=== PATIENT | female | born 1995 | race Caucasian/White ===

== ENCOUNTER 2017-02-10 02:35 | Emergency (ER) | payer MEDICAID ==
--- NOTE | 2017-02-10 02:40 | ED Physician Documentation ---
PD HPI HEENT - Stated complaint Stated Complaint: R EAR PX - History obtained from History obtained from: Patient - History of Present Illness Timing - onset: Enter time (00:00 (midnight)), Today Timing - duration: Hours Timing - details: Abrupt onset, Constant Pain level now: 8 Location: Right ear Improves: Nothing Worsens: Swalllowing Associated symptoms: No: Fever, Congestion, Rhinorrhea, Facial swelling, Headache, Cough Review of Systems Constitutional: denies: Fever, Chills, Sweats Ears: reports: Ear pain. denies: Loss of hearing, Drainage/discharge, Tinnitus/ ringing Nose: reports: Reviewed and negative Throat: denies: Sore throat PD PAST MEDICAL HISTORY - Past Medical History Past Medical History: No - Past Surgical History Past Surgical History: No - Present Medications Home Medications: Ambulatory Orders Medication Instructions Recorded Confirmed HYDROcod/ACETAM 5/325 [[place] 5/325] 1 - 2 ea PO Q6H PRN #15 tablet 02/10/17 - Allergies Allergies/Adverse Reactions: Allergies Allergy/AdvReac Type Severity Reaction Status Date / Time No Known Drug Allergies Allergy Verified 09/08/15 16:34 - Social History Does the pt smoke?: Yes Smoking Status: Current some day smoker Does the pt drink ETOH?: Yes Does the pt have substance abuse?: No - Immunizations Immunizations are current?: Yes PD ED PE NORMAL - Vitals Vital signs reviewed: Yes - General General: Alert and oriented X 3, Well developed/nourished, Other (appears to be uncomfortable due to pain) - HEENT HEENT: Moist mucous membranes, Pharynx benign - Neck Neck: Supple, no meningeal sign PD ED PE EXPANDED - HEENT HEENT: R TM dull, R TM bulging, R TM loss of landmarks Results - Vitals Vitals: Vital Signs - 24 hr 02/10/17 02:39 Temperature 36.6 C Heart Rate 87 Respiratory 18 Rate Blood Pressure 131/80 H O2 Saturation 97 Oxygen O2 Source Room air PD MEDICAL DECISION MAKING - ED course Complexity details: considered differential, d/w patient Departure - Departure Disposition: 01 Home, Self Care Clinical Impression: Serous otitis media Qualifiers: Chronicity: acute Laterality: right Recurrence: not specified as recurrent Qualified Code(s): H65.01 - Acute serous otitis media, right ear Condition: Good Instructions: ED Otitis Media Serous Adult Follow-Up: Judy Stevens ARNP [Primary Care Provider] - Prescriptions: HYDROcod/ACETAM 5/325 [[place] 5/325] 1 - 2 ea PO Q6H PRN #15 tablet PRN Reason: Pain Discharge Date/Time: 02/10/17 03:08
[2017-02-10 02:43] VITALS: BP 131/80
[2017-02-10] MEDS ORDERED: HYDROcod/ACET 5/325 Prepack 6 PO STA (02:55)
[2017-02-10] MEDS ORDERED: DEXAMETHASONE 10 MG/ML VIAL PO STA (02:55)
[2017-02-10] MEDS ORDERED: DEXAMETHASONE 10 MG/ML VIAL ONE (03:03)
[2017-02-10] MEDS ORDERED: HYDROcod/ACET 5/325 Prepack 6 PO ONE (03:03)
[2017-02-10] MEDS ORDERED: CHERRY SYRUP 10 ML UDC PO ONE (03:04)
== END 2017-02-10 03:08 | disposition home or self-care (01) ==
LOC: ED 02:35
DX: H65.01 Acute serous otitis media, right ear (principal); F17.200 Nicotine dependence, unspecified, uncomplicated
CPT/HCPCS: 99283; A9270

== ENCOUNTER 2017-09-08 17:27 | Emergency (ER) | payer MEDICAID ==
[2017-09-08] MEDS ORDERED: HYDROcod/ACETAM 5/325 MG TABLET PO STA (18:42)
[2017-09-08] MEDS ORDERED: HYDROcod/ACET 5/325 Prepack 4 PO STA (18:52)
--- NOTE | 2017-09-08 18:55 | ED Physician Documentation ---
PD HPI BACK INJURY - Stated complaint Stated Complaint: BACK PX - History obtained from History obtained from: Patient - History of Present Illness Type of injury: Other (She tripped while chasing her dog and kind of came down on her back, she complains of left flank pain radiating a little bit towards the hip. No other injuries. She is able to walk and bear weight. There is no possibility of .) Review of Systems Constitutional: reports: Reviewed and negative Cardiac: reports: Reviewed and negative Respiratory: reports: Reviewed and negative PD PAST MEDICAL HISTORY - Past Medical History Past Medical History: No Cardiovascular: None Respiratory: None Neuro: None Endocrine/Autoimmune: None GI: None FITTER PLACER: None : None HEENT: None, Other Psych: None Musculoskeletal: None Derm: None - Past Surgical History Past Surgical History: No - Present Medications Home Medications: Ambulatory Orders Medication Instructions Recorded Confirmed HYDROcod/ACETAM 5/325 [[place] 5/325] 1 - 2 ea PO Q6H PRN #15 tablet 09/08/17 - Allergies Allergies/Adverse Reactions: Allergies Allergy/AdvReac Type Severity Reaction Status Date / Time No Known Drug Allergies Allergy Verified 09/08/17 17:42 - Social History Does the pt smoke?: Yes Smoking Status: Current every day smoker Does the pt drink ETOH?: Yes Does the pt have substance abuse?: No Substance Use and Type: Marijuana - Immunizations Immunizations are current?: Yes PD ED PE NORMAL - Vitals Vital signs reviewed: Yes - General General: Alert and oriented X 3, No acute distress - Abdomen Abdomen: Soft, Non tender - Back Back: No spinal TTP, Other (She has muscular tenderness over the left back without midline tenderness or hip or pelvic tenderness.) - Extremities Extremities: Other (The patient has equal and normal Achilles and patellar reflexes bilaterally. Normal sensation in all areas of the legs. Patient denies saddle anesthesia. Normal strength in flexion-extension at the ankles, knees, and flexion of the hips.) - Neuro Neuro: Alert and oriented X 3, Normal speech Results - Vitals Vitals: Vital Signs - 24 hr 09/08/17 09/08/17 17:39 18:54 Temperature 36.9 C 36.9 C Heart Rate 94 75 Respiratory 15 18 Rate Blood Pressure 123/74 125/76 O2 Saturation 97 95 Oxygen O2 Source Room air PD MEDICAL DECISION MAKING - ED course ED course: Xrays were recommended but refused, Departure - Departure Disposition: 01 Home, Self Care Clinical Impression: Low back sprain Qualifiers: Encounter type: initial encounter Qualified Code(s): S33.9XXA - Sprain of unspecified parts of lumbar spine and pelvis, initial encounter Condition: Stable Record reviewed to determine appropriate education?: Yes Instructions: ED Sprain Strain Lumbar Prescriptions: HYDROcod/ACETAM 5/325 [[place] 5/325] 1 - 2 ea PO Q6H PRN #15 tablet PRN Reason: Pain Comments: Call your doctor to arrange a follow-up appointment, make the next available appointment. In the interim, return anytime if worse or if new symptoms develop. Do not drink or drive while taking narcotic pain medication. Note that many narcotic pain relievers also contain Tylenol/acetaminophen. Please ensure that your total dose of acetaminophen from all sources does not exceed 3 g (3000 mg) per day. You may get constipated while on this medication. Take a stool softener such as Colace twice a day while you are on it. Also add an [id number]-cko-[id number] laxative such as senna or MiraLAX on any day that you do not have a bowel movement. If you received a narcotic pain medication or sedative while in the emergency department, do not drive for the next 24 hours. Discharge Date/Time: 09/08/17 19:01
[2017-09-08 18:56] VITALS: BP 125/76
== END 2017-09-08 19:01 | disposition home or self-care (01) ==
LOC: ED 17:27
DX: F17.200 Nicotine dependence, unspecified, uncomplicated (principal); S33.5XXA Sprain of ligaments of lumbar spine, initial encounter; W01.0XXA Fall on same level from slipping, tripping and stumbling without subsequent striking against object, initial encounter
CPT/HCPCS: 99283; A9270

== ENCOUNTER 2017-11-14 09:36 | Emergency (ER) | payer MEDICAID ==
[2017-11-14 10:54] LABS: BILIRUBIN,URINE NEGATIVE (NEGATIVE); GLUCOSE, URINE (UA) NEGATIVE (NEGATIVE); KETONES,URINE (UA) NEGATIVE (NEGATIVE); LEUKOCYTE ESTERASE, URINE NEGATIVE (NEGATIVE); NITRITE,URINE NEGATIVE (NEGATIVE); OCCULT BLOOD,URINE NEGATIVE (NEGATIVE); PH,URINE 6.5 PH (5.0-7.5); PROTEIN,URINE NEGATIVE (NEGATIVE); UROBILINOGEN,URINE 0.2 (NORMAL) E.U./dL (NORMAL)
[2017-11-14 10:56] LABS: CLARITY,URINE CLEAR (CLEAR); HCG UR QUAL NEGATIVE
[2017-11-14] MEDS ORDERED: cefTRIAXone 250 MG VIAL IM STA (11:52)
[2017-11-14] MEDS ORDERED: LIDOCAINE 1% 2 ML VIAL SUBQ ONE (11:52)
[2017-11-14] MEDS ORDERED: AZITHROMYCIN 250 MG TABLET PO STA (11:52)
--- NOTE | 2017-11-14 11:57 | ED Physician Documentation ---
PD HPI FEMALE - Stated complaint Stated Complaint: FM - Chief complaint Chief Complaint: Wound - History obtained from History obtained from: Patient - History of Present Illness Timing - onset: How many days ago (3) Timing - duration: Days (3) Timing - details: Gradual onset, Still present Associated symptoms: Genital sore/lesion Contributing factors: Sexually active, Exposed to STD Similar symptoms before: Has not had sx before Recently seen: Not recently seen - Additional information Additional information: 22-year-old female has noted some small red bumps on her buttocks that have drained some pus and are firm. She got a telephone call from her boyfriend who states that he got a call from a female he had been with recently stating that he needs to be checked for chlamydia. The patient denies any urinary symptoms or vaginal discharge denies any pelvic cramping. Review of Systems Constitutional: denies: Fever Eyes: denies: Decreased vision Ears: denies: Ear pain Nose: denies: Congestion Respiratory: denies: Cough GI: denies: Vomiting : denies: Dysuria, Discharge Skin: reports: Lesions Musculoskeletal: denies: Neck pain, Back pain, Extremity pain PD PAST MEDICAL HISTORY - Past Medical History Cardiovascular: None Respiratory: None Endocrine/Autoimmune: None GI: None ANIMAL WARDEN: None : None HEENT: None, Other Psych: None Musculoskeletal: None Derm: None - Past Surgical History Past Surgical History: No - Present Medications Home Medications: Ambulatory Orders Medication Instructions Recorded Confirmed HYDROcod/ACETAM 5/325 [[place] 5/325] 1 - 2 ea PO Q6H PRN #15 tablet 09/08/17 Sulfamethoxazole/Trimethoprim 1 each PO BID #14 tablet 11/14/17 [Sulfamethoxazole-Tmp Ds Tablet] - Allergies Allergies/Adverse Reactions: Allergies Allergy/AdvReac Type Severity Reaction Status Date / Time No Known Drug Allergies Allergy Verified 09/08/17 17:42 - Social History Does the pt smoke?: Yes Smoking Status: Current every day smoker Does the pt drink ETOH?: Yes Does the pt have substance abuse?: No - Immunizations Immunizations are current?: Yes - POLST Patient has POLST: No PD ED PE NORMAL - Vitals Vital signs reviewed: Yes (normal ) - General General: Alert and oriented X 3, No acute distress, Well developed/nourished - HEENT HEENT: Atraumatic, PERRL, EOMI - Respiratory Respiratory: No respiratory distress - Female Female : Molder Helper present (Samantha), Other (There are 3 small red lumps on the lower buttocks posterior thigh consistent with staph skin infection and not HSV. There is scant discharge and the cervix is high a specimen is taken from the area and may be inadequate. There is no cervial motion tenderness. ) - Derm Derm: Normal color, Warm and dry - Extremities Extremities: No deformity, No edema - Neuro Neuro: No motor deficit, No sensory deficit Eye Opening: Spontaneous Motor: Obeys Commands Verbal: Oriented GCS Score: 15 - Psych Psych: Normal mood, Normal affect Results - Vitals Vitals: Vital Signs - 24 hr 11/14/17 09:39 Temperature 36.2 C L Heart Rate 74 Respiratory 18 Rate Blood Pressure 135/70 H O2 Saturation 98 Oxygen O2 Source Room air - Labs Labs: Laboratory Tests 11/14/17 10:49 Urine Color YELLOW Urine Clarity CLEAR Urine pH 6.5 Ur Specific [place] 1.015 Urine Protein NEGATIVE Urine Glucose (UA) NEGATIVE Urine Ketones NEGATIVE Urine Occult Blood NEGATIVE Urine Nitrite NEGATIVE Urine Bilirubin NEGATIVE Urine Urobilinogen 0.2 (NORMAL) Ur Leukocyte Esterase NEGATIVE Ur Microscopic Review NOT INDICATED Urine Culture Comments NOT INDICATED Urine HCG, Qual NEGATIVE PD MEDICAL DECISION MAKING - ED course Complexity details: reviewed results, re-evaluated patient, considered differential, d/w patient ED course: 22-year-old female with what appears to be a scattered staph skin infection on her lower buttocks and posterior thigh has been exposed to chlamydia as well. Pelvic exam is unremarkable and there is no cervical motion tenderness. Despite this patient is treated for chlamydia with 250 mg of Rocephin and 1 g of azithromycin. She does have the staph infection this will be treated separately with sulfamethoxazole trimethoprim. - Sepsis Event Vital Signs: Vital Signs - 24 hr 11/14/17 09:39 Temperature 36.2 C L Heart Rate 74 Respiratory 18 Rate Blood Pressure 135/70 H O2 Saturation 98 Oxygen O2 Source Room air Departure - Departure Disposition: 01 Home, Self Care Clinical Impression: STD exposure, Staph skin infection Condition: Stable Instructions: ED Staph Infec Abx Tx Only, ED VD Cervicitis Treated Follow-Up: [facility] [Provider Group] Prescriptions: Sulfamethoxazole/Trimethoprim [Sulfamethoxazole-Tmp Ds Tablet] 1 each PO BID # 14 tablet
[2017-11-14 12:10] VITALS: BP 130/68
== END 2017-11-14 12:09 | disposition home or self-care (01) ==
LOC: ED 09:36
DX: L08.9 Local infection of the skin and subcutaneous tissue, unspecified (principal); B95.8 Unspecified staphylococcus as the cause of diseases classified elsewhere; Z20.2 Contact with and (suspected) exposure to infections with a predominantly sexual mode of transmission; F17.200 Nicotine dependence, unspecified, uncomplicated
CPT/HCPCS: 81003; 81025; 87491; 87591; 96372; 99283; A9270; 81001; 87086

== ENCOUNTER 2018-10-19 15:04 | Emergency (ER) | payer SELFPAY ==
--- NOTE | 2018-10-19 15:32 | ED Physician Documentation ---
PD HPI FEMALE - Stated complaint Stated Complaint: FEMALE - Chief complaint Chief Complaint: UTI - History obtained from History obtained from: Patient - History of Present Illness Timing - onset: How many days ago (33) Timing - duration: Days Timing - details: Gradual onset, Still present Associated symptoms: Back pain, Dysuria, Urinary frequency Contributing factors: No: Similar symptoms before: Diagnosis (UTI and pyelo) Recently seen: Not recently seen - Additional information Additional information: 23-year-old female previously well with a prior history of urinary tract infection and pyelonephritis has developed urinary urgency frequency and dysuria with some mild nausea and some left flank pain. Review of Systems Constitutional: reports: Myalgias, Fatigue. denies: Fever, Chills Eyes: denies: Decreased vision Ears: denies: Loss of hearing, Ear pain Nose: denies: Congestion Throat: denies: Sore throat Respiratory: denies: Dyspnea, Cough GI: reports: Nausea. denies: Abdominal Pain, Vomiting : reports: Dysuria, Frequency Skin: denies: Rash Musculoskeletal: reports: Back pain. 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 : Chronic bladder infection HEENT: None, Other Psych: None Musculoskeletal: None Derm: None - Past Surgical History Past Surgical History: No - Present Medications Home Medications: Ambulatory Orders Medication Instructions Recorded Confirmed Sulfamethoxazole/Trimethoprim 1 each PO BID #14 tablet 10/19/18 [Sulfamethoxazole-Tmp Ds Tablet] - Allergies Allergies/Adverse Reactions: Allergies Allergy/AdvReac Type Severity Reaction Status Date / Time No Known Drug Allergies Allergy Verified 09/08/17 17:42 - Social History Does the pt smoke?: Yes Smoking Status: Current every day smoker Does the pt drink ETOH?: Yes Does the pt have substance abuse?: No - Immunizations Immunizations are current?: Yes - POLST Patient has POLST: No PD ED PE NORMAL - Vitals Vital signs reviewed: Yes (normal ) - General General: Alert and oriented X 3, No acute distress, Well developed/nourished - HEENT HEENT: Atraumatic, PERRL, EOMI - Respiratory Respiratory: No respiratory distress - Back Back: No spinal TTP, Other (there is mild point tenderness to the lower lumbar paraspinous muscles and there is tenderness to the left CVA that is mild ) - Derm Derm: Normal color, Warm and dry, No rash - Extremities Extremities: No deformity, No edema - Neuro Neuro: Alert and oriented X 3, in school suspension coordinator 2-12 intact, No motor deficit, No sensory deficit, Normal speech Eye Opening: Spontaneous Motor: Obeys Commands Verbal: Oriented GCS Score: 15 - Psych Psych: Normal mood, Normal affect Results - Vitals Vitals: Vital Signs - 24 hr 10/19/18 15:10 Temperature 36.6 C Heart Rate 100 Respiratory 18 Rate Blood Pressure 121/73 O2 Saturation 98 Oxygen O2 Source Room air - Labs Labs: Laboratory Tests 10/19/18 10/19/18 15:23 15:23 Urine Color YELLOW Urine Clarity HAZY Urine pH 7.0 Ur Specific [place] 1.020 1.020 Urine Protein TRACE Urine Glucose (UA) NEGATIVE Urine Ketones NEGATIVE Urine Occult Blood TRACE-LYSE Urine Nitrite POSITIVE H Urine Bilirubin NEGATIVE Urine Urobilinogen 0.2 (NORMAL) Ur Leukocyte Esterase MODERATE H Urine RBC 6-10 H Urine WBC >25 H Ur Squamous Epith Cells FEW Squamous Urine Bacteria Many H Ur Microscopic Review INDICATED Urine Culture Comments INDICATED Urine HCG, Qual NEGATIVE PD MEDICAL DECISION MAKING - ED course Complexity details: reviewed old records, reviewed results, re-evaluated patient, considered differential, d/w patient ED course: 23-year-old female with a prior history of urinary tract infection and pyelonephritis has developed urinary tract infection again today and has some left flank tenderness. She is administered Rocephin 1 g IM. Departure - Departure Disposition: 01 Home, Self Care Clinical Impression: Pyelonephritis Instructions: ED Kidney Infec Female Follow-Up: [facility] [Provider Group] Prescriptions: Sulfamethoxazole/Trimethoprim [Sulfamethoxazole-Tmp Ds Tablet] 1 each PO BID #14 tablet
[2018-10-19 15:34] LABS: BILIRUBIN,URINE NEGATIVE (NEGATIVE); GLUCOSE, URINE (UA) NEGATIVE (NEGATIVE); KETONES,URINE (UA) NEGATIVE (NEGATIVE); LEUKOCYTE ESTERASE, URINE MODERATE (NEGATIVE); NITRITE,URINE POSITIVE (NEGATIVE); OCCULT BLOOD,URINE TRACE-LYSE (NEGATIVE); PROTEIN,URINE TRACE mg/dL (NEGATIVE); UROBILINOGEN,URINE 0.2 (NORMAL) E.U./dL (NORMAL)
[2018-10-19 15:37] LABS: CLARITY,URINE HAZY (CLEAR)
[2018-10-19 15:38] LABS: HCG UR QUAL NEGATIVE
[2018-10-19 15:44] LABS: BACTERIA,URINE Many /HPF (None Seen); SQUAMOUS EPITHELIAL CELL,UR FEW Squamous (<= Few)
[2018-10-19] MEDS ORDERED: cefTRIAXone 1 GM VIAL IM STA (15:58)
[2018-10-19] MEDS ORDERED: LIDOCAINE 1% 2 ML VIAL MC ONE (15:58)
[2018-10-19 16:35] VITALS: BP 116/63
== END 2018-10-19 16:34 | disposition home or self-care (01) ==
LOC: ED 15:04
DX: N12 Tubulo-interstitial nephritis, not specified as acute or chronic (principal); F17.200 Nicotine dependence, unspecified, uncomplicated
CPT/HCPCS: 81001; 81003; 81025; 87086; 87181; 96372; 99283

== ENCOUNTER 2019-02-27 09:19 | Emergency (ER) | payer MEDICAID ==
[2019-02-27 10:55] VITALS: BP 128/80
--- NOTE | 2019-02-27 11:18 | ED Physician Documentation ---
PD HPI FEMALE - Stated complaint Stated Complaint: FEMALE - Chief complaint Chief Complaint: Abd Pain - History obtained from History obtained from: Patient - History of Present Illness Timing - onset: How many weeks ago (3) Timing - duration: Weeks (3) Timing - details: Gradual onset, Still present, Waxing and waning Associated symptoms: Pelvic pain Contributing factors: IUD Similar symptoms before: Has not had sx before Recently seen: Clinic - Additional information Additional information: 23-year-old female complains that over the past 3 weeks she has had pain immediately after intercourse lasting about 30 minutes. She is been into see her regular doctor and she is now been treated for bacterial vaginosis. Today she went to wipe and found a small piece of her IUD. She is come in now for hoda luation. She states that she was seen yesterday and has a order for an ultrasound as they were not able to find the strings. 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 : Chronic bladder infection HEENT: None, Other Psych: None Musculoskeletal: None Derm: None - Past Surgical History Past Surgical History: No - Present Medications Home Medications: Ambulatory Orders Medication Instructions Recorded Confirmed Sulfamethoxazole/Trimethoprim 1 each PO BID #14 tablet 10/19/18 [Sulfamethoxazole-Tmp Ds Tablet] - Allergies Allergies/Adverse Reactions: Allergies Allergy/AdvReac Type Severity Reaction Status Date / Time No Known Drug Allergies Allergy Verified 02/27/19 09:22 - Social History Does the pt smoke?: Yes Smoking Status: Current every day smoker Does the pt drink ETOH?: Yes Does the pt have substance abuse?: No - Immunizations Immunizations are current?: Yes - POLST Patient has POLST: No PD ED PE NORMAL - Vitals Vital signs reviewed: Yes (hypertensive ) - General General: Alert and oriented X 3, No acute distress, Well developed/nourished - HEENT HEENT: Atraumatic, PERRL, EOMI - Respiratory Respiratory: No respiratory distress - Female Female : [employer] present (eula ), Other (The patient is on her menses. The cervix is anterior and the strings of the IUD are present. The IUD Is removed successfully. ) - Derm Derm: Normal color, Warm and dry, No rash - Extremities Extremities: No deformity, No edema - Neuro Neuro: Alert and oriented X 3, track manager 2-12 intact, No motor deficit, No sensory deficit, Normal speech Eye Opening: Spontaneous Motor: Obeys Commands Verbal: Oriented GCS Score: 15 - Psych Psych: Normal mood, Normal affect Results - Vitals Vitals: Vital Signs - 24 hr 02/27/19 02/27/19 09:22 10:54 Temperature 36.5 C 36.4 C L Heart Rate 88 68 Respiratory 16 15 Rate Blood Pressure 131/85 H 128/80 O2 Saturation 100 99 Oxygen O2 Source Room air PD MEDICAL DECISION MAKING - ED course Complexity details: re-evaluated patient, considered differential, d/w patient ED course: 23-year-old female who has been having dyspareunia for 3 weeks found a broken part to her IUD and today we were able to remove the IUD the remainder of the IUD is intact and the patient has a resolution of her symptoms within 20 minutes. Departure - Departure Disposition: 01 Home, Self Care Clinical Impression: Encounter for IUD removal IUD mechanical complication Qualifiers: Mechanical complication type: mechanical breakdown Encounter type: initial encounter Qualified Code(s): T83.31XA - Breakdown (mechanical) of intrauterine contraceptive device, initial encounter Condition: Stable Instructions: Levonorgestrel intrauterine device IUD Follow-Up: Judy Stevens ARNP [Primary Care Provider] - Discharge Date/Time: 02/27/19 11:34
== END 2019-02-27 11:34 | disposition home or self-care (01) ==
LOC: ED 09:19
DX: T83.32XA Displacement of intrauterine contraceptive device, initial encounter (principal); Y84.8 Other medical procedures as the cause of abnormal reaction of the patient, or of later complication, without mention of misadventure at the time of the procedure; N94.10 Unspecified dyspareunia; F17.200 Nicotine dependence, unspecified, uncomplicated
CPT/HCPCS: 99282

== ENCOUNTER 2019-05-11 17:34 | Emergency (ER) | payer MEDICAID ==
[2019-05-11 17:50] VITALS: BP 129/69
[2019-05-11] MEDS ORDERED: HYDROcod/ACETAM 5/325 MG TABLET PO STA (18:35)
--- NOTE | 2019-05-11 18:37 | ED Physician Documentation ---
History of Present Illness - Stated complaint Stated Complaint: TOOTH PX - Chief complaint Chief Complaint: Heent - History obtained from History obtained from: Patient - History of Present Illness Timing: Yesterday Pain level max: 8 Pain level now: 8 - Additonal information Additional information: Left front upper tooth pain. She states that this tooth has had a root canal in the past. She states that she has been told it is dying. She states it was not hurting until yesterday. Increasing pain today. She states she is currently on Flagyl for bacterial vaginitis and was given a antibiotic for "staph". She does not know what it is and does not have it with her. She picked it up from the pharmacy today but has not started it. Nothing makes this better or worse. No fevers. 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 : Chronic bladder infection HEENT: None, Other Psych: None Musculoskeletal: None Derm: None - Past Surgical History Past Surgical History: No - Present Medications Home Medications: Ambulatory Orders Medication Instructions Recorded Confirmed Sulfamethoxazole/Trimethoprim 1 each PO BID #14 tablet 10/19/18 [Sulfamethoxazole-Tmp Ds Tablet] Hydrocodone/Acetaminophen 1 - 2 each PO Q6H PRN #14 tablet 05/11/19 [Hydrocodon-Acetaminophen 5-325] - Allergies Allergies/Adverse Reactions: Allergies Allergy/AdvReac Type Severity Reaction Status Date / Time No Known Drug Allergies Allergy Verified 05/11/19 17:50 - Social History Does the pt smoke?: Yes Smoking Status: Current every day smoker Does the pt drink ETOH?: Yes Does the pt have substance abuse?: No - Immunizations Immunizations are current?: Yes - POLST Patient has POLST: No PD ED PE NORMAL - Vitals Vital signs reviewed: Yes - General General: Alert and oriented X 3 - HEENT HEENT: Moist mucous membranes - Neck Neck: Supple, no meningeal sign - Derm Derm: Warm and dry - Neuro Neuro: Alert and oriented X 3 PD ED PE EXPANDED - HEENT HEENT Visual: 1 - swelling, tenderness Results - Vitals Vitals: Vital Signs - 24 hr 05/11/19 17:48 Temperature 36.7 C Heart Rate 77 Respiratory 18 Rate Blood Pressure 129/69 O2 Saturation 97 Oxygen O2 Source Room air PD MEDICAL DECISION MAKING - ED course Complexity details: considered differential, d/w patient ED course: Patient presents to the emergency room with a dental infection. Will prescribe pain medication for home. She picked up antibiotics today. Sounds as if it may be Keflex. If it is Keflex, she can continue this at home. If it is not, she will call back to the emergency department to have her antibiotic changed. Patient counseled regarding signs and symptoms for which I believe and urgent re-evaluation would be necessary. Patient with good understanding of and agreement to plan and is comfortable going home at this time This document was made in part using voice recognition software. While efforts are made to proofread this document, sound alike and grammatical errors may occur. Departure - Departure Disposition: 01 Home, Self Care Clinical Impression: Dental infection Condition: Good Instructions: ED Tooth Pain Follow-Up: Judy Stevens ARNP [Primary Care Provider] - Prescriptions: Hydrocodone/Acetaminophen [Hydrocodon-Acetaminophen 5-325] 1 - 2 each PO Q6H PRN #14 tablet PRN Reason: pain Comments: Return if you worsen. Please follow-up with your dentist as soon as possible. Call back to the emergency department with the antibiotic that you picked up today. Do not drink alcohol or drive while on narcotic pain medicine. Note that many narcotic pain relievers also contain tylenol/acetaminophen. Please ensure that your total dose of acetaminophen from all sources does not exceed 3 grams (3000mg) per day. You may constipated on this medication, take a stool softener such as "Colace" twice a day while you are on it. Also recommend a [id number] laxative such as senna or MiraLAX any day that you do not have a bowel movement. If you received narcotic pain medication in the emergency department, do not drive or operate machinery for the next 24 hours. Discharge Date/Time: 05/11/19 18:41
== END 2019-05-11 18:41 | disposition home or self-care (01) ==
LOC: ED 17:34
DX: K04.7 Periapical abscess without sinus (principal); F17.200 Nicotine dependence, unspecified, uncomplicated
CPT/HCPCS: 99282; 99284; A9270

== ENCOUNTER 2019-08-21 12:30 | Outpatient (CLI) | payer MEDICAID | END 2019-08-21 12:31 | disposition home or self-care (01) | LOC: LAB.R 12:30 | PROVIDERS: ATTEND Physician Assistant Medical | DX: L08.9 Local infection of the skin and subcutaneous tissue, unspecified (principal) | CPT/HCPCS: 87070; 87205 ==

== ENCOUNTER 2021-03-30 08:00 | Outpatient (CLI) | payer MEDICAID | END 2021-03-30 23:59 | disposition home or self-care (01) | LOC: LAB.S 08:00 | PROVIDERS: ATTEND Emergency Medicine | DX: R09.81 Nasal congestion (principal); J06.9 Acute upper respiratory infection, unspecified; Z20.822 Contact with and (suspected) exposure to COVID-19 ==

== ENCOUNTER 2021-04-16 17:51 | Emergency (ER) | payer MEDICAID ==
--- NOTE | 2021-04-16 18:22 | ED Physician Documentation ---
PD HPI HEENT - Stated complaint Stated Complaint: FACE & NECK PX - Chief complaint Chief Complaint: Heent - History obtained from History obtained from: Patient - History of Present Illness Timing - onset: How many days ago (2) Timing - duration: Days (2) Timing - details: Abrupt onset, Still present (she had cavity repair with filling on Wed (3 days ago) without problems except that numbness of the lower lip and some of tongue has not fully resolved. She talked with dentist and was told it should improve with more time. Developed throat pain and swelling the past 2 days.) Location: Throat, Tooth Improves: No: Medication (has tried Tylenol and Ibuprofen without improvement.) Worsens: Swalllowing Associated symptoms: No: Fever, Congestion, Facial swelling Recently seen: Clinic (seen by dentist 3 days ago for cavity left lower molar.) Review of Systems Constitutional: denies: Fever, Chills Nose: denies: Rhinorrhea / runny nose, Congestion Throat: reports: Sore throat, Swollen tonsils (left side) Cardiac: denies: Chest pain / pressure Respiratory: denies: Cough GI: denies: Abdominal Pain, Nausea, Vomiting Skin: denies: Rash, Lesions PD PAST MEDICAL HISTORY - Past Medical History Cardiovascular: None Respiratory: None Endocrine/Autoimmune: None GI: None [employer]IAN [employer]ER: None : Chronic bladder infection HEENT: None, Other Psych: None Musculoskeletal: None Derm: None - Past Surgical History Past Surgical History: No - Present Medications Home Medications: Ambulatory Orders Medication Instructions Recorded Confirmed HYDROcod/ACETAM 5/325 [[place] 5/325] 1 ea PO Q6H PRN #12 tablet 04/16/21 cephALEXin [Keflex] 500 mg PO TID #20 cap 04/16/21 dexAMETHasone [Decadron] 4 mg PO DAILY #5 tablet 04/16/21 - Allergies Allergies/Adverse Reactions: Allergies Allergy/AdvReac Type Severity Reaction Status Date / Time No Known Drug Allergies Allergy Verified 04/16/21 18:10 - Social History Does the pt smoke?: Yes Smoking Status: Current every day smoker Does the pt drink ETOH?: Yes Does the pt have substance abuse?: No - Immunizations Immunizations are current?: Yes - POLST Patient has POLST: No PD ED PE NORMAL - Vitals Vital signs reviewed: Yes - General General: Alert and oriented X 3, No acute distress, Well developed/nourished - HEENT HEENT: Ears normal, Dentition benign (there is recent filling left lower molar. No gum swelling nor tenderness. She does have left tonsil swelling, redness and exudate with malodor. Mild peritonsillar redness. ). No: Pharynx benign - Neck Neck: Supple, no meningeal sign, No adenopathy - Cardiac Cardiac: No murmur. No: RRR (regular but mild tachycardia. ) - Respiratory Respiratory: Clear bilaterally - Derm Derm: Normal color, Warm and dry, No rash - Neuro Neuro: Alert and oriented X 3, No motor deficit, Normal speech Results - Vitals Vitals: Vital Signs - 24 hr 04/16/21 04/16/21 18:07 19:24 Temperature 37.3 C 36.9 C Heart Rate 114 H 102 H Respiratory 18 16 Rate Blood Pressure 117/69 120/65 O2 Saturation 99 99 Oxygen O2 Source Room air - Labs Labs: Laboratory Tests 04/16/21 18:36 Group A Strep Rapid Negative PD MEDICAL DECISION MAKING - ED course Complexity details: considered differential (some pain in mandible at area of dental work but no swelling nor local tenderness there. Has exudative swelling left tonsil with mild peritonsillar edema but no bulging. high suspicion clinically for bacterial tonsillitis. ), d/w patient Departure - Departure Disposition: 01 Home, Self Care Clinical Impression: Other dental procedure status Acute tonsillitis Qualifiers: Pharyngitis/tonsillitis etiology: unspecified etiology Qualified Code(s): J03.90 - Acute tonsillitis, unspecified Condition: Stable Record reviewed to determine appropriate education?: Yes Prescriptions: dexAMETHasone [Decadron] 4 mg PO DAILY #5 tablet cephALEXin [Keflex] 500 mg PO TID #20 cap HYDROcod/ACETAM 5/325 [[place] 5/325] 1 ea PO Q6H PRN #12 tablet PRN Reason: Pain Comments: Rapid strep test is negative which is specific for group A strep. The culture from this will result in a couple of days and will tell us about other bacterial causes. Meanwhile this looks like a bacterial type infection in the tonsils/peritonsillar area and I would treat it with antibiotics, anti- inflammatories and pain medicines. I wrote prescriptions for cephalexin and dexamethasone for antibiotic and inflammation. Add Tylenol every 4-6 hours if needed for pain or ibuprofen in addition. Add hydrocodone if needed for worse pain. I transmitted the prescriptions to [facility] in [place]. I would anticipate improvement over the next 2 to 3 days and resolution by 3 to 5 days. Recheck if not better in that timeframe. The numbness from the dental anesthesia should wear off over few more days as well. It might also be contributed or added to by the swelling related to the current infection. I am prescribing a short course of narcotic pain medication for you. These are potentially dangerous and addictive medications that should be used carefully. These medications may constipate you. Take an [id number] stool softener such as docusate twice daily with plenty of water while taking these medications. If you go 24 hours without a bowel movement, take [id number] MiraLAX, per package instructions. Do not drink or drive while taking these medications. If you received narcotic or sedating medications while in the emergency department do not drive for 24 hours. Store this medication in a safe, secure place and out of reach of children. It is a violation of federal law to give or sell this medication to another person or to use in a manner other than prescribed. The ED will not refill narcotic prescriptions, including prescriptions lost or stolen. You can dispose of unwanted medications at the [facility]'s office or at several pharmacies such as [facility]. Discharge Date/Time: 04/16/21 19:25
[2021-04-16] MEDS ORDERED: HYDROcod/ACETAM 5/325 MG TABLET PO STA (18:39)
[2021-04-16] MEDS ORDERED: DEXAMETHASONE 10 MG/ML VIAL PO STA (18:39)
[2021-04-16] MEDS ORDERED: CHERRY SYRUP 10 ML UDC PO ONE (18:39)
[2021-04-16] MEDS ORDERED: cephALEXin 250 MG CAPSULE PO STA (18:39)
[2021-04-16] MEDS ORDERED: HYDROcod/ACET 5/325 Prepack 4 PO STA (18:43)
[2021-04-16 18:55] LABS: RAPID STREP SCREEN Negative (Negative)
[2021-04-16 19:25] VITALS: BP 120/65
== END 2021-04-16 19:25 | disposition home or self-care (01) ==
LOC: ED 17:51
DX: J03.90 Acute tonsillitis, unspecified (principal)
CPT/HCPCS: 87070; 87077; 87430; 99283; 99284; A9270

== ENCOUNTER 2021-09-26 08:15 | Emergency (ER) | payer MEDICAID ==
[2021-09-26] MEDS ORDERED: HYDROmorphone 1 MG/ML CARPUJECT IM STA (08:49)
[2021-09-26] MEDS ORDERED: ONDANSETRON ODT 4 MG TABLET TL STA (08:49)
[2021-09-26] MEDS ORDERED: LIDOCAINE 1% 2 ML VIAL SUBQ STA (08:49)
[2021-09-26] MEDS ORDERED: KETOROLAC 60 MG/2 ML VIAL IM STA (09:59)
--- NOTE | 2021-09-26 10:39 | ED Physician Documentation ---
PD HPI SKIN - Stated complaint Stated Complaint: LT LEG INSECT BITE - Chief complaint Chief Complaint: Wound - History obtained from History obtained from: Patient, Family - History of Present Illness Timing - onset: How many days ago (3) Timing - duration: Days (3) Timing - details: Gradual onset, Still present Location: LLE Quality / character: Painful, Discolored, Raised, Swelling Associated symptoms: No: Fever, Myalgias, Joint pain, Headache, Facial swelling, Dyspnea, Abd pain, N/V/D, Urinary sx Contributing factors: Insect bite /sting Similar symptoms before: Has not had sx before Recently seen: Not recently seen - Additional information Additional information: 26-year-old female reports a 3-day history of pain and swelling to the posterior aspect of her left thigh just above the knee. 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 She comes in today with increased pain and difficulty walking. Review of Systems Constitutional: reports: Fatigue. 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 : Chronic bladder infection HEENT: None, Other Psych: None Musculoskeletal: None Derm: None - Past Surgical History Past Surgical History: No - Present Medications Home Medications: Ambulatory Orders Medication Instructions Recorded Confirmed HYDROcod/ACETAM 5/325 [[place] 5/325] 1 ea PO Q6H PRN #12 tablet 04/16/21 cephALEXin [Keflex] 500 mg PO TID #20 cap 04/16/21 dexAMETHasone [Decadron] 4 mg PO DAILY #5 tablet 04/16/21 HYDROcod/ACETAM 5/325 [[place] 5/325] 1 - 2 tablet PO Q6H PRN #14 tablet 09/26/21 Sulfamethox/Trimeth 800/160 1 each PO BID #14 tablet 09/26/21 [Bactrim Ds] - Allergies Allergies/Adverse Reactions: Allergies Allergy/AdvReac Type Severity Reaction Status Date / Time No Known Drug Allergies Allergy Verified 09/26/21 08:28 - Social History Does the pt smoke?: Yes Smoking Status: Current every day smoker Does the pt drink ETOH?: Yes Does the pt have substance abuse?: No - Immunizations Immunizations are current?: Yes - POLST Patient has POLST: No PD ED PE NORMAL - Vitals Vital signs reviewed: Yes (hypertensive ) - General General: Alert and oriented X 3, No acute distress, Well developed/nourished - HEENT HEENT: Atraumatic, PERRL, EOMI - Respiratory Respiratory: No respiratory distress - Derm Derm: Normal color, Warm and dry - Extremities Extremities: Other (To the posterior aspect of the distal left thigh there is a 2 cm area of erythema and induration which is firm and extremely tender there is 6 cm of surrounding erythema that is blanching.) - Neuro Neuro: Alert and oriented X 3, drug safety assistant 2-12 intact, No motor deficit, No sensory deficit, Normal speech Eye Opening: Spontaneous Motor: Obeys Commands Verbal: Oriented GCS Score: 15 - Psych Psych: Normal mood, Normal affect Results - Vitals Vitals: Vital Signs - 24 hr 09/26/21 09/26/21 08:25 11:52 Temperature 36.0 C L 36.5 C Heart Rate 85 68 Respiratory 20 16 Rate Blood Pressure 142/105 H 134/78 H O2 Saturation 98 98 Oxygen O2 Source Room air - Labs Labs: Microbiology 09/26/21 10:35 Wound Culture - Preliminary Left Lower Extremity - Abscess Procedures - Abscess I&D (location) left thigh Preparation: Confirmed with ultrasound, Betadine, Lidocaine 1% Incision: Incised with scalpel, Purulent drainage, Loculations broken, Irrigated, Culture obtained Other: Pt tolerated well, Dressing applied, Antibiotic prescribed PD MEDICAL DECISION MAKING - ED course Complexity details: reviewed old records, considered differential, d/w patient, d/w family ED course: 26-year-old female with an abscess at the distal aspect of her left thigh posteriorly has pus confirmed with ultrasound and this is then incised and drained. The patient had quite a bit of pain with even examination of her leg and required IM Dilaudid followed by IM Toradol before we could begin the process of incision and drainage. She did tolerate the incision and drainage we did irrigate copiously and we did obtain a culture. Departure - Departure Disposition: 01 Home, Self Care Clinical Impression: Abscess Condition: Stable Instructions: ED Abscess IandD Follow-Up: [facility] [place] [Provider Group] Prescriptions: Sulfamethox/Trimeth 800/160 [Bactrim Ds] 1 each PO BID #14 tablet HYDROcod/ACETAM 5/325 [[place] 5/325] 1 - 2 tablet PO Q6H PRN #14 tablet PRN Reason: Pain Comments: Katherine, today it looks like you have an abscess to the back of your leg and we have lanced this and drained the pus out of it clean the abscess cavity and the expectation is improvement day by day. We have prescribed an antibiotic some sulfamethoxazole trimethoprim that has been E scribed to the community pharmacy in [place]. The expectation is day by day improvement if he have worsening follow-up here or with the walk-in clinic in [place]. Discharge Date/Time: 09/26/21 11:57
[2021-09-26 11:54] VITALS: BP 134/78
== END 2021-09-26 11:57 | disposition home or self-care (01) ==
LOC: ED 08:15
DX: L02.416 Cutaneous abscess of left lower limb (principal); F17.200 Nicotine dependence, unspecified, uncomplicated
CPT/HCPCS: 10060; 87070; 87181; 87205; 96372; 99282; 99283; J1170; Q0162

== ENCOUNTER 2022-02-23 13:31 | Outpatient (CLI) | payer MEDICAID | END 2022-02-23 13:32 | disposition EMS.NT | LOC: EMS 13:31 | DX: F41.9 Anxiety disorder, unspecified (principal) ==

== ENCOUNTER 2023-12-01 09:06 | Outpatient (CLI) | payer MEDICAID ==
[2023-12-01 18:38] LABS: BASOPHILS % (AUTO) 0.5 %; EOSINOPHILS # (AUTO) 0.1 10^3/uL (0.0-0.7); HCT - HEMATOCRIT 44.7 % (37.0-47.0); HGB - HEMOGLOBIN 13.9 g/dL (12.0-16.0); LYMPHOCYTES % (AUTO) 29.4 %; MEAN CORPUSCULAR HGB CONC 31.1 g/dL (32.0-36.0); MEAN CORPUSCULAR VOLUME 93.3 fL (81.0-99.0); MEAN PLATELET VOLUME 9.5 fL (7.9-10.8); MONOCYTES # (AUTO) 0.7 10^3/uL (0.0-1.0); MONOCYTES % (AUTO) 10.9 %; NEUTROPHILS # (AUTO) 3.8 10^3/uL (1.5-6.6); PLT - PLATELET COUNT 407 10^3/uL (130-450); RED BLOOD COUNT 4.79 10^6/uL (4.20-5.40); RED CELL DISTRIBUTION WIDTH 13.1 % (12.0-15.0); WHITE BLOOD COUNT 6.6 x10^3/uL (4.8-10.8)
[2023-12-01 19:12] LABS: ALBUMIN/GLOBULIN RATIO 1.1 (1.0-2.2); ALKALINE PHOSPHATASE 112 IU/L (42-121); ALT ALANINE AMINOTRANSFERASE 25 IU/L (10-60); AST ASPARTATE AMINOTRANSFERASE 21 IU/L (10-42); BILIRUBIN,TOTAL 0.6 mg/dL (0.2-1.0); BUN - BLOOD UREA NITROGEN 13 mg/dL (6-20); CALCIUM 9.3 mg/dL (8.5-10.3); CARBON DIOXIDE - CO2 24 mmol/L (21-32); CHLORIDE 106 mmol/L (101-111); CHOL/HDL RATIO 4.1 (<4.4); CHOLESTEROL 173 mg/dL; CREATININE 0.7 mg/dL (0.6-1.3); GFR - MDRD 99 (>89); GLUCOSE 97 mg/dL (74-104); HDL CHOLESTEROL 42 mg/dL; LDL CHOLESTEROL,CALCULATED 111 mg/dL; LDL/HDL RATIO 2.6 (<4.4); POTASSIUM 4.2 mmol/L (3.5-4.5); SODIUM 137 mmol/L (135-145); TOTAL PROTEIN 7.6 g/dL (6.4-8.9); TRIGLYCERIDES 102 mg/dL (48-352); VLDL CHOLESTEROL 20 mg/dL
[2023-12-01 19:20] LABS: THYROID STIMULATING HORMONE 2.18 uIU/mL (0.34-5.60)
== END 2023-12-01 09:07 | disposition home or self-care (01) ==
LOC: LAB.N 09:06
PROVIDERS: ATTEND Physician Assistant
DX: Z00.00 Encounter for general adult medical examination without abnormal findings (principal)
CPT/HCPCS: 36415; 80050; 80061; 83721